=== PATIENT | female | born 1955 | race Caucasian/White ===

== ENCOUNTER → 2016-07-03 | Outpatient (REF) | LOC: WSOH 14:49 | DX: Z02.89 Encounter for other administrative examinations (principal) ==

== ENCOUNTER → 2016-08-19 | Outpatient (CLI) | payer OTHER | LOC: MC.RAD 08-04 10:20 | DX: Z12.31 Encounter for screening mammogram for malignant neoplasm of breast (principal) ==

== ENCOUNTER 2016-09-05 10:00 | Outpatient (RCR) | payer OTHER | END 2016-09-12 13:34 | disposition home or self-care (01) | LOC: MKS.ESL.PT 10:00 | DX: M54.2 Cervicalgia (principal); R42 Dizziness and giddiness ==

== ENCOUNTER 2016-09-05 11:00 | Outpatient (RCR) | payer OTHER | END 2016-10-01 | LOC: WSOH | DX: S06.0X0A Concussion without loss of consciousness, initial encounter (principal); S16.1XXA Strain of muscle, fascia and tendon at neck level, initial encounter; W01.198A Fall on same level from slipping, tripping and stumbling with subsequent striking against other object, initial encounter; Y92.218 Other school as the place of occurrence of the external cause; Y99.0 Civilian activity done for income or pay ==

== ENCOUNTER 2020-11-18 10:51 | Emergency (ER) | payer BC ==
[~2020-11-18] VITALS: Ht 157.5 cm; Wt 88.6 kg
[2020-11-18 11:01] VITALS: TEMP 98.8
[2020-11-18 11:29] LABS: COLLECTION METHOD CLEAN CATCH
[2020-11-18 11:31] LABS: BASO % 0.6 % (0.0-2.0); EOS # 0.1 (0.0-0.7); EOS % 1.5 % (0-4.0); GRAN % 76.5 % (42.2-75.2); HEMATOCRIT 41.4 % (37.0-47.0); HEMOGLOBIN 14.5 g/dl (12.5-16.0); LYMPH # 0.3 (1.2-3.4); LYMPH % 6.5 % (20.0-51.0); MEAN CELL VOLUME 86 fl (80.0-100.0); MEAN CORPUSCULAR HEMOGLOBIN 30 pg (27.0-31.0); MEAN CORPUSCULAR HGB CONC 35 g/dl (33.0-37.0); MONO # 0.8 (0.1-0.6); MONO % 14.5 % (1.7-9.3); PLATELET COUNT 420 K/mm3 (130-400); REDCELL DISTRIBUTION WIDTH-CV 12.9 % (11.5-14.5)
[2020-11-18 11:34] LABS: PH 6 (5-8); SQUAMOUS EPITHELIAL None Seen /hpf; URINE APPEARANCE Clear; URINE BACTERIA None Seen /hpf; URINE BILIRUBIN Negative (NEGATIVE); URINE BLOOD Negative (NEGATIVE); URINE COLOR Straw; URINE GLUCOSE Negative (NEGATIVE); URINE KETONE 1+ (NEGATIVE); URINE LEUKOCYTE ESTERASE Negative (NEGATIVE); URINE NITRATE Negative (NEGATIVE); URINE PROTEIN(semi-quant) Negative (NEGATIVE); URINE RBC 0-2 /hpf; URINE UROBILINOGEN Negative (NEGATIVE)
[2020-11-18 11:57] LABS: ALBUMIN 4.3 gm/dL (3.5-5.0); BILIRUBIN,TOTAL 0.7 mg/dL (0.0-1.0); CALCIUM 8.3 mg/dL (8.4-10.2); CREATININE, serum 0.59 (0.52-1.25); TOTAL PROTEIN 7.3 gm/dL (6.4-8.2)
[2020-11-18] MEDS ORDERED: SYNTHROID0.075 MG/T PO (14:01)
[2020-11-18] MEDS ORDERED: MAXZIDE-25MG TA1 TAB PO (14:02)
[2020-11-18] MEDS ORDERED: ZOFRAN ODT4 MG PO (14:05)
[2020-11-18] MEDS ORDERED: CLEOCIN HCL300 MG PO (14:05)
[2020-11-18 14:17] VITALS: BP 140/77; PULSE 71
== END 2020-11-18 14:19 | disposition home or self-care (01) ==
LOC: COL.ER 10:51
PROVIDERS: Family Medicine
DX: K52.9 Noninfective gastroenteritis and colitis, unspecified (principal); K04.7 Periapical abscess without sinus; E03.9 Hypothyroidism, unspecified; Z79.890 Hormone replacement therapy
CPT/HCPCS: J0780; J2405; J7030; J7120